=== PATIENT | female | born 1965 | race Caucasian/White ===

== ENCOUNTER 2017-10-17 06:39 | Emergency (ER) | payer MEDICARE ==
[~2017-10-17] VITALS: Ht 152.4 cm; Wt 70.3 kg
[2017-10-17] MEDS ORDERED: Norco 10-325 T1 EACH (07:22)
[2017-10-17] MEDS ORDERED: GABA300 PO (07:22)
[2017-10-17] MEDS ORDERED: FOLI1 PO (07:22)
[2017-10-17] MEDS ORDERED: ALPR1 PO (07:23)
[2017-10-17] MEDS ORDERED: Inderal80 MG PO (07:23)
[2017-10-17] MEDS ORDERED: Omeprazole20 M1 PO (07:24)
[2017-10-17] MEDS ORDERED: LEVSOD125 PO (07:24)
[2017-10-17] MEDS ORDERED: OXYC15ER PO (07:25)
[2017-10-17] MEDS ORDERED: Calcitriol0.5 MCG PO (07:25)
[2018-04-29] MEDS ORDERED: MIRT15 PO (16:12)
[2018-04-29] MEDS ORDERED: SUMA25 PO (16:12)
== END 2017-10-17 07:34 | disposition home or self-care (01) ==
LOC: ER 06:39
DX: F41.9 Anxiety disorder, unspecified (principal); G47.00 Insomnia, unspecified; H93.19 Tinnitus, unspecified ear; I10 Essential (primary) hypertension
CPT/HCPCS: 99283

== ENCOUNTER → 2018-05-29 | Outpatient (CLI) | payer MEDICARE ==
[~2018-05-29] MED LIST: ALPR1 PO; Calcitriol0.5 MCG PO; FOLI1 PO; GABA300 PO; Inderal80 MG PO; LEVSOD125 PO; MIRT15 PO; Norco 10-325 T1 EACH; OXYC15ER PO; Omeprazole20 M1 PO; SUMA25 PO
[2018-05-29 17:37] LABS: U Amphetamine Screen Not Detected; U Barbituate Screen Not Detected; U Benzodiazapine Screen DETECTED; U Buprenorphine Screen Not Detected; U Cannabinoids Screen Not Detected; U Cocaine Screen Not Detected; U Methadone Screen Not Detected; U Methamphetamine Screen Not Detected; U Opiates Screen Not Detected; U Oxycodone Screen Not Detected; U Phencyclidine Screen Not Detected; U Propoxyphene Screen Not Detected
== END ==
LOC: LAB SHORT 16:55 → LAB 16:55
PROVIDERS: Family Medicine
DX: Z02.89 Encounter for other administrative examinations (principal); K50.90 Crohn's disease, unspecified, without complications; Z79.899 Other long term (current) drug therapy